=== PATIENT | male | born 1980 | race Caucasian/White ===

== ENCOUNTER 2019-05-11 12:08 | Emergency (ER) | payer SELFPAY ==
--- NOTE | 2019-05-11 13:17 | ED Physician Documentation ---
History of Present Illness - Stated complaint Stated Complaint: FEVER SX - Chief complaint Chief Complaint: Fever - History of Present Illness Pain level now: 2 - Additonal information Additional information: This is a 38-year-old male with history of past drug and tobacco use, who presents with cough, fever, rhinorrhea, and myalgias for 48 hours. Patient Typically lives in [place], he is out here for work, around 48 hours ago he began developing some generalized soreness in his muscles, had a fever to 100.5 F, he also had some rhinorrhea and nonproductive cough. Patient states that he Previously was a smoker for 20 years, and he does use an inhaler from time to time for intermittent shortness of breath. He denies any shortness of breath over his baseline. No hemoptysis. Review of Systems Constitutional: reports: Fever Nose: reports: Rhinorrhea / runny nose Cardiac: denies: Chest pain / pressure Respiratory: reports: Cough. denies: Dyspnea : denies: Dysuria PD PAST MEDICAL HISTORY - Past Medical History Respiratory: Other (Lung damage from past aspiration and smoking) - Past Surgical History Other past surgical history: R chest tube for iatrogenic pneumothorax - Present Medications Home Medications: Ambulatory Orders Medication Instructions Recorded Confirmed Acetaminophen 650 mg PO Q6HR #30 tablet 05/11/19 Albuterol Sulf [Ventolin Hfa 1 - 2 puffs INH Q4HR PRN #1 inhaler 05/11/19 Inhaler] Benzonatate [Tessalon Perle] 100 - 200 mg PO TID PRN #30 capsule 05/11/19 Ibuprofen 600 mg PO Q6H PRN #30 tablet 05/11/19 - Allergies Allergies/Adverse Reactions: Allergies Allergy/AdvReac Type Severity Reaction Status Date / Time No Known Drug Allergies Allergy Verified 05/11/19 12:24 - Living Situation Living Situation: reports: Alone - Social History Smoking Status: Former smoker Substance Use and Type: Marijuana PD ED PE NORMAL - Vitals Vital signs reviewed: Yes - General General: Alert and oriented X 3, No acute distress - HEENT HEENT: PERRL - Neck Neck: Supple, no meningeal sign - Cardiac Cardiac: RRR, No murmur - Respiratory Respiratory: Other (Slight end expiratory wheeze diffusely, no tachypnea, normal work of breathing.) - Abdomen Abdomen: Non distended - Derm Derm: Warm and dry - Extremities Extremities: No deformity - Neuro Neuro: Alert and oriented X 3 - Psych Psych: Normal mood, Normal affect Results - Vitals Vitals: Oxygen O2 Source Room air PD MEDICAL DECISION MAKING - ED course Complexity details: considered differential (URI, bronchitis, pneumonia, asthma, COPD) ED course: Pt presents with several days of URI symptoms. Vital signs are unremarkable, he is afebrile with normal oxygen saturation. He has some diffuse mild end- expiratory wheezing that is likely due to COPD, though he denies SOB or chest pain at this time I will prescribe an inhaler. His vital signs, lung auscultation, and history of a short period of symptoms makes pneumonia highly unlikely. He appears to have a viral URI, supportive care and return precautions were discussed with patient and he was discharged. Departure - Departure Disposition: 01 Home, Self Care Clinical Impression: Viral URI Condition: Good Instructions: ED Viral Syndrome Follow-Up: Your,PCP [Other] Prescriptions: Albuterol Sulf [Ventolin Hfa Inhaler] 1 - 2 puffs INH Q4HR PRN #1 inhaler PRN Reason: Shortness Of Air/Wheezing Acetaminophen 650 mg PO Q6HR #30 tablet Benzonatate [Tessalon Perle] 100 - 200 mg PO TID PRN #30 capsule PRN Reason: Cough Ibuprofen 600 mg PO Q6H PRN #30 tablet PRN Reason: Pain Comments: You appear to have a viral infection, you may take Tylenol and ibuprofen for fever and for muscle aches. You may try the Tessalon Perles for cough. You also have a slight wheeze, the albuterol inhaler may help with this. If you develop shortness of breath, fever despite the Tylenol ibuprofen, or any other new or concerning symptoms please return to the emergency department. Forms: Activity restrictions Discharge Date/Time: 05/11/19 13:51
[2019-05-11 13:52] VITALS: BP 132/80
== END 2019-05-11 13:51 | disposition home or self-care (01) ==
LOC: ED 12:08
DX: J06.9 Acute upper respiratory infection, unspecified (principal); Z87.891 Personal history of nicotine dependence
CPT/HCPCS: 99282; 99283